=== PATIENT | female | born 2000 | race American Indian/Alaskan Native ===

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

== ENCOUNTER 2022-01-30 08:00 | Outpatient (CLI) | payer BC | END 2022-01-30 08:01 | disposition home or self-care (01) | LOC: LAB.S 08:00 | PROVIDERS: ATTEND Physician Assistant Medical | DX: R07.0 Pain in throat (principal); Z20.822 Contact with and (suspected) exposure to COVID-19 | CPT/HCPCS: 87070 ==

== ENCOUNTER 2022-05-14 14:25 | Emergency (ER) | payer BC ==
[2022-05-14 14:40] VITALS: BP 151/77
[2022-05-14] MEDS ORDERED: MUPIROCIN 2% OINT 1 GM TOP STA (14:49)
[2022-05-14] MEDS ORDERED: cephALEXin 250 MG CAPSULE PO STA (14:49)
--- NOTE | 2022-05-14 14:50 | ED Physician Documentation ---
PD HPI LOWER EXT INJURY - Stated complaint Stated Complaint: L LEG AND FOOT INJ - Chief complaint Chief Complaint: Trauma Ext - History obtained from History obtained from: Patient - Additional information Additional information: 22-year-old woman up-to-date on tetanus was playing softball 2 nights ago and slid while wearing shorts and has a large deep abrasion with worsening pain and swelling to the left lower extremity. No other injuries. Review of Systems Ten Systems: 10 systems reviewed and negative Constitutional: denies: Fever, Chills Throat: reports: Reviewed and negative Cardiac: reports: Reviewed and negative Respiratory: reports: Reviewed and negative PD PAST MEDICAL HISTORY - Past Medical History Respiratory: Pneumonia - Past Surgical History Past Surgical History: No - Present Medications Home Medications: Ambulatory Orders Medication Instructions Recorded Confirmed Albuterol 2.5 mg INH Q4H PRN 09/07/17 09/07/17 Amox/Clav 875/125 [Augmentin] 1 each PO Q12H #20 tablet 09/07/17 Fluticasone [Flonase] 1 sprays MARGI BID PRN #1 bottle 09/07/17 Amoxicillin 875 mg PO BID #20 tablet 05/22/19 Amoxicillin 875 mg PO BID 10 Days #1 bottle 05/22/19 predniSONE [Prednisone] 40 mg PO DAILY 3 Days #10 tablet 05/22/19 HYDROcod/ACETAM 5/325 [[place] 5/325] 1 - 2 tab PO Q6H PRN #15 tablet 05/14/22 Mupirocin 2% Oint [Bactroban 2% 1 applic TOP BID #100 gm 05/14/22 Oint] cephALEXin [Keflex] 500 mg PO Q6H #28 cap 05/14/22 - Allergies Allergies/Adverse Reactions: Allergies Allergy/AdvReac Type Severity Reaction Status Date / Time No Known Drug Allergies Allergy Verified 05/14/22 14:39 - Social History Does the pt smoke?: No Smoking Status: Never smoker Does the pt drink ETOH?: No Does the pt have substance abuse?: No - Immunizations Immunizations are current?: Yes - POLST Patient has POLST: No PD ED PE NORMAL - Vitals Vital signs reviewed: Yes - General General: Alert and oriented X 3, No acute distress - Extremities Extremities: Other (There is a large deep abrasion/road road rash to the anterolateral left leg from the knee down to the ankle. The ankle is swollen and tender and there is some honey colored drainage which was sent for culture from the inferior part of the abrasion.) - Neuro Neuro: Alert and oriented X 3, Normal speech Results - Vitals Vitals: Vital Signs - 24 hr 05/14/22 14:36 Temperature 37.0 C Heart Rate 102 H Respiratory 16 Rate Blood Pressure 151/77 H O2 Saturation 99 Oxygen O2 Source Room air Departure - Departure Disposition: 01 Home, Self Care Clinical Impression: Abrasion, left ankle, initial encounter, Cellulitis of left ankle, Left ankle sprain Condition: Good Record reviewed to determine appropriate education?: Yes Instructions: ED Infec Skin Cellulitis, ED Sprain Ankle W X Ray Prescriptions: Mupirocin 2% Oint [Bactroban 2% Oint] 1 applic TOP BID #100 gm cephALEXin [Keflex] 500 mg PO Q6H #28 cap HYDROcod/ACETAM 5/325 [[place] 5/325] 1 - 2 tab PO Q6H PRN #15 tablet PRN Reason: Pain Comments: I sent your prescriptions electronically to [facility] in [place]. As discussed, for wound care you can wash briefly with soap and water and then apply the antibiotic/mupirocin ointment under a nonstick dressing such as Telfa dressing and then a loose wrap. Keep it elevated. Return for new or worsening symptoms. We are performing a wound culture, the results should be done in 48-72 hours. If antibiotic change is necessary we will call you. Return if worse in the meantime, especially if you develop increased pain, fevers, cannot keep down the medication. Otherwise follow-up with your physician in approximately 2-3 days. I am prescribing a short course of narcotic pain medication for you. These are potentially dangerous and addictive medications that should be used carefully. These medications may constipate you. Take an wbxy-fis-fbqfhxh stool softener (docusate) twice daily with plenty of water while taking these medications. If you go 24 hours without a bowel movement, take [id number] miralax, per package instructions. Do not drink or drive while taking these medications. If you received narcotic or sedating medications while in the emergency department, do not drive for 24 hours. Store this medication in a safe, secure place and out of reach of children. It is a violation of federal law to give or sell this medication to another person or to use in a manner other than prescribed. The ED will not refill narcotic prescriptions, including prescriptions lost or stolen. To dispose of unwanted medications: 1. [facility] at [address] in [place] has a medication drop box. They accept prescription medications (in pill form) Sunday through Sunday 9:00 a.m. to 5:00 p.m. 2. The [facility] accepts prescription medications (in pill form only) for disposal year round. Call for more information. 3. Contact the [facility] for the next [facility] sponsored prescription drug collection event. , [phone], or [phone]; Note that many narcotic pain relievers also contain Tylenol/acetaminophen. Please ensure that your total dose of acetaminophen from all sources does not exceed 3 g (3000 mg) per day. Forms: Activity restrictions
--- NOTE | 2022-05-14 15:11 | XRAY Report ---
PROCEDURE: Ankle 3 View LT INDICATIONS: ankle inj TECHNIQUE: 3 views of the ankle were acquired. COMPARISON: None FINDINGS: Bones: No fractures or dislocations. Ankle mortise is normally aligned. No suspicious bony lesions . Soft tissues: Lateral soft tissue swelling. No tibiotalar joint effusion. Achilles tendon appears no rmal. IMPRESSION: Lateral ankle sprain. No evidence acute bony abnormality of the left ankle. If clinical suspicion and/or symptoms persist, further assessment with repeat plain films or advanced imaging (e.g., CT, MRI, or bone scan) may be helpful for further assessment. Reviewed by: Samuel James MD on 05/14/2022 2:10 PM [facility] Approved by: Samuel James MD on 05/14/2022 2:10 PM [facility] Station ID: [id number]
[2022-05-14] MEDS ORDERED: HYDROcod/ACETAM 5/325 MG TABLET PO STA (15:20)
[2022-05-14] MEDS ORDERED: CEPHALEXIN 250 MG Prepack 8 CAP BOTTLE PO STA (17:23)
[2022-05-14] MEDS ORDERED: HYDROcod/ACET 5/325 Prepack 4 PO STA (17:23)
== END 2022-05-14 15:46 | disposition home or self-care (01) ==
LOC: ED 14:25
DX: S90.512A Abrasion, left ankle, initial encounter (principal); W18.30XA Fall on same level, unspecified, initial encounter; Y93.64 Activity, baseball
CPT/HCPCS: 73610; 87070; 87205; 99282; 99284; A9270